=== PATIENT | female | born 1970 | race Caucasian/White ===

== ENCOUNTER 2021-01-10 12:55 | Emergency (ER) | payer OTHER ==
[~2021-01-10] VITALS: Ht 167 cm; Wt 78.0 kg
--- NOTE | 2021-01-10 13:40 | ED Back Pain ---
General Chief Complaint: Back Problems Stated Complaint: BACK PAIN Nursing Triage Note: PT AMB TO ROOM FT1 PT CO OF BACK PAIN, STATES WAS ASSITING MOTHER UP FROM FLOOR, FELT AND HEARD SOMETHING IN BACK POP. PT CO OF MID TO LOWER BACK PAIN THAT RADIATES D0WN R LEG, RATES PAIN 10/10 AT THIS X Source of Information: Patient Exam Limitations: No Limitations History of Present Illness Date Seen by Provider: Jan 10, 2021 Time Seen by Provider: 13:38 Initial Comments To ER with reports of midline low back pain that radiates all the way down the right leg to the toes. No loss of bowel or bladder control no saddle anesthesia no fever no chills no history of cancer no history of IV drug use. This began 2 days ago while helping her mother who had fallen. She lives in [place] but is here visiting to help her mother. She states that while lifting her mother she felt a popping sensation in her back as if "a bomb went off" in her back. Location: Lumbar Spine Timing/Duration: 1-2 Days Severity: Moderate Pain/Injury Location: Back Radiation: Upper Legs Method of Injury: Other (Lifting) Associated Symptoms: lower back pain Allergies and Home Medications Allergies Coded Allergies: ketorolac (Verified Allergy, Unknown, 01/10/21) Uncoded Allergies: iv contrast (Adverse Reaction, Unknown, 01/10/21) Patient Home Medication List Home Medication List Reviewed: Yes Review of Systems Constitutional: see HPI EENTM: see HPI Respiratory: no symptoms reported Cardiovascular: no symptoms reported Genitourinary: no symptoms reported Musculoskeletal: no symptoms reported Skin: no symptoms reported Psychiatric/Neurological: No Symptoms Reported Past Eeifhfu-Hoeasp-Dlaher Hx Patient Social History Tobacco Use?: Yes Tobacco type used: Cigarettes Smoking Status: Current Everyday Smoker Substance use?: No Alcohol Use?: No Pt feels they are or have been: No Immunizations Up To Date Second COVID19 Vaccination Charan: MAY COVID19 Vaccine Movement Education Specialist: [facility] Physical Exam Vital Signs Vital Signs - First Documented 01/10/21 13:05 Temp 36.8 Pulse 65 Resp 18 B/P (MAP) 164/111 (128) Pulse Ox 98 Capillary Refill : Less Than 3 Seconds Height, Weight, BMI Height: '" Weight: lbs. oz. kg; 27.00 BMI Method: General Appearance: No Apparent Distress, WD/WN Neck: Full Range of Motion, Normal Inspection Cardiovascular: Regular Rate, Rhythm, Normal Peripheral Pulses Respiratory: Lungs Clear, Normal Breath Sounds, No Accessory Muscle Use, No Respiratory Distress Gastrointestinal: Non Tender, Soft Extremity: Normal Capillary Refill, Normal Inspection Neurologic/Psychiatric: Alert, Oriented x3 Skin: Normal Color, Warm/Dry Progress/Results/Core Measures Results/Orders My Orders Orders - DRAKE RAI APRN Ct Lumbar Spine Wo (01/10/21 13:34) Orphenadrine Inj (Ed Only) (Norflex Inje (01/10/21 13:45) Hydrocodone/Apap 5/325 Tablet (Lortab 5 (01/10/21 13:45) Medications Given in ED Current Medications Medications Dose Ordered Sig/Eveline Route Start Time Stop Time Status Last Admin Dose Admin Acetaminophen/ Hydrocodone Bitart 1 ea ONCE ONCE PO 01/10/21 13:45 01/10/21 13:46 DC 01/10/21 13:45 1 EA Orphenadrine Citrate 60 mg ONCE ONCE IM 01/10/21 13:45 01/10/21 13:46 DC 01/10/21 13:44 60 MG Vital Signs/I&O 01/10/21 13:05 Temp 36.8 Pulse 65 Resp 18 B/P (MAP) 164/111 (128) Pulse Ox 98 Blood Pressure Mean: 128 Departure Impression Primary Impression: Lumbar radiculopathy Disposition: 01 HOME, SELF-CARE Condition: Stable Departure-Patient Inst. Decision time for Depature: 13:40 Referrals: NO,LOCAL PHYSICIAN (PCP/Family) Primary Care Physician Patient Instructions: Low Back Pain (DC) Scripts Naproxen (Naprosyn) 500 Mg Tablet 500 MG PO BID PRN for PAIN-MODERATE (5-7), #30 TAB 0 Refills Prov: DRAKE RAI APRN 01/10/21 Hydrocodone/Acetaminophen (Hydrocodone-Acetamin 5-325 mg) 1 Each Tablet 1 TAB PO Q4H PRN for PAIN-MODERATE (5-7), #10 TAB Prov: DRAKE RAI APRN 01/10/21 DRAKE RAI APRN Jan 10, 2021 13:40
[2021-01-10] MEDS ORDERED: ORPHENADRINE 60 MG/2 ML (NORFLEX) AMP (ED ONLY) IM ONE (13:45)
[2021-01-10] MEDS ORDERED: HYDROcodone/APAP 5 MG/325 MG (LORTAB) TAB PO ONE (13:45)
--- NOTE | 2021-01-10 14:23 | Diagnostic Imaging Report ---
PROCEDURE: CT lumbar spine without contrast. TECHNIQUE: Multiple contiguous axial images were obtained through the lumbar spine without the use of intravenous contrast. Sagittal and coronal reformations were then performed. Auto Exposure Controls were utilized during the CT exam to meet ALARA standards for radiation dose reduction. INDICATION: Left-sided back pain status post injury. COMPARISON: For the purposes of this exam, the last well-formed disc space is denoted the L5-S1 level. Static alignment of the lumbar spine is maintained. There is no significant elisa or retrolisthesis. There is no evidence of jumped facets. The vertebral body heights are maintained. There is no acute fracture. No bony fragments are seen within the spinal canal. There are multilevel degenerative changes, greatest at L4-L5 where there is advanced intervertebral disc height loss as well as sclerotic change of the adjacent endplates. There is also a broad-based posterior disc/osteophyte complex formation. This appears to result in at least moderate narrowing of the spinal canal and bilateral neuroforamen. The pre and paravertebral soft tissue structures are unremarkable. There is mild scattered calcified aortic atherosclerosis. IMPRESSION: 1. No acute fracture or dislocation in the lumbar spine. 2. Multilevel degenerative changes, greatest at L4-L5, as described above. Dictated by: Dictated on workstation # [id number]
[2021-01-10] MEDS ORDERED: ACHD5005 PO (14:27)
[2021-01-10] MEDS ORDERED: NAPR-1071 PO (14:27)
[2021-01-10 14:37] VITALS: BP 164/111
== END 2021-01-10 14:36 | disposition home or self-care (01) ==
LOC: ER 12:56
DX: M54.16 Radiculopathy, lumbar region (principal); F17.210 Nicotine dependence, cigarettes, uncomplicated
CPT/HCPCS: 72131